=== PATIENT | female | born 1955 | race Caucasian/White ===

== ENCOUNTER 2020-03-26 09:04 | Day surgery (SDC) | payer OTHER, SELFPAY ==
[~2020-03-26] VITALS: Ht 162.6 cm; Wt 85.3 kg
[2020-03-26] MEDS ORDERED: fentaNYL citrate 0.05 MG/ML VIAL ONE (11:19)
[2020-03-26] MEDS ORDERED: LIDOCAINE 2% 100 MG/5 ML UJET TP ONE ×2 (11:19→11:50)
[2020-03-26] MEDS ORDERED: fentaNYL citrate 0.05 MG/ML VIAL IVP ONE (11:45)
== END 2020-03-26 12:00 | disposition home or self-care (01) ==
LOC: MFCC 09:04 → MDS 09:04
PROVIDERS: ATTEND Internal Medicine Gastroenterology
DX: Z12.11 Encounter for screening for malignant neoplasm of colon (principal); Z85.3 Personal history of malignant neoplasm of breast; Z11.59 Encounter for screening for other viral diseases; Z98.890 Other specified postprocedural states; Z88.0 Allergy status to penicillin; Z88.5 Allergy status to narcotic agent; Z91.040 Latex allergy status
CPT/HCPCS: 45378; J3010; U0003

== ENCOUNTER 2023-09-13 17:00 | Observation (INO) | payer OTHER ==
[~2023-09-13] VITALS: Ht 162.6 cm; Wt 81.2 kg
[2023-09-13 17:10] VITALS: PULSE 93; RESP 17; TEMP 98.3; O2SAT 97
[2023-09-13 17:42] VITALS: O2SAT 97
[2023-09-13 17:48] LABS: APPEARANCE,URINE CLEAR (CLEAR); BILIRUBIN,URINE NEGATIVE (NEGATIVE); BLOOD, URINE NEGATIVE (NEGATIVE); COLOR,URINE YELLOW (YELLOW); LEUKOCYTE ESTERASE ,URINE NEGATIVE (NEGATIVE); NITRITE, URINE NEGATIVE (NEGATIVE); PROTEIN,URINE NEGATIVE (NEGATIVE); UGLUCOSE 3+ (NEGATIVE); UROBILINOGEN,URINE 0.2 EU/dL (0.2 - 1)
[2023-09-13 19:08] LABS: BASOPHILS # (AUTO) 0.1 K/uL (0.00-0.22); BASOPHILS % (AUTO) 0.9 % (0.0-2.0); EOSINOPHILS # (AUTO) 0.1 K/uL (0-0.4); EOSINOPHILS % (AUTO) 1.4 % (0.0-4.0); HEMATOCRIT 41.8 % (36-48); HEMOGLOBIN 13.9 g/dL (12.0-16.0); LYMPHOCYTES # (AUTO) 2.3 K/uL (2.5-16.5); LYMPHOCYTES % (AUTO) 28.5 % (20.5-51.1); MEAN CORPUSCULAR HEMOGLOBIN 31 pg (27-31); MEAN CORPUSCULAR HGB CONC 33 g/dL (33-37); MONOCYTES # (AUTO) 0.8 K/uL (0.8-1.0); MONOCYTES % (AUTO) 10.1 % (1.7-9.3); NEUTROPHILS # (AUTO) 4.7 K/uL (1.8-7.7); NEUTROPHILS % (AUTO) 59.1 % (42.2-75.2); PLATELET COUNT (AUTO) 403 K/uL (140-450); RED BLOOD CELL COUNT(AUTO) 4.49 MIL/uL (4.20-5.40); RED CELL DISTRIBUTION WIDTH 14.2 % (11.6-13.7); WHITE BLOOD COUNT (AUTO) 7.9 K/uL (4.8-10.8)
[2023-09-13] MEDS: KETOROLAC 30 MG/ML VIAL IM ONE (19:17)
[2023-09-13] MEDS: ACETAMINOPHEN EXTRA STRENGTH 500 MG TAB PO ONE (19:19)
[2023-09-13 19:22] LABS: FLU A ANTIGEN negative (NEGATIVE); FLU B ANTIGEN negative (NEGATIVE)
[2023-09-13 19:31] LABS: ANION GAP 9.3 (8-16); CALCIUM 9.1 mg/dL (8.5-10.1); CARBON DIOXIDE 34.1 mmol/L (21-32); CREATININE 1.2 mg/dL (0.6-1.3); POTASSIUM 3.4 mmol/L (3.5-5.1)
[2023-09-13 19:34] LABS: INR 0.98 (0.8-1.2); PARTIAL THROMBOPLASTIN TIME 24.4 secs (22-35.6); PROTHROMBIN TIME 10.3 secs (10.8-13.4)
[2023-09-13] MEDS ORDERED: ZOLPIDEM 5 MG TAB PO PRN (21:55)
[2023-09-13] MEDS ORDERED: KCL 20 MEQ IN 100 mL PREMIX 200 ML IV PRN (21:55)
[2023-09-13] MEDS ORDERED: MAG SULF 2000 MG/WATER PREMIX 50 ML IV PRN (21:55)
[2023-09-13] MEDS ORDERED: ACETAMINOPHEN 325 MG TAB PO PRN (21:55)
[2023-09-13] MEDS ORDERED: MAGNESIUM OXIDE 400 MG TAB PO PRN (21:55)
[2023-09-13] MEDS ORDERED: ONDANSETRON 4 MG/2 ML VIAL IVP PRN (21:55)
[2023-09-14] VITALS: BP 141/62; PULSE 70; PULSE 93; RESP 18; TEMP 96.3; O2SAT 99
[2023-09-14] MEDS ORDERED: PRIM250T70 PO (00:26)
[2023-09-14] MEDS ORDERED: ANAS1TAB56 PO (00:26)
[2023-09-14] MEDS ORDERED: DIPH25TA53 PO (00:26)
[2023-09-14] MEDS ORDERED: TRI48 PO (00:26)
[2023-09-14] MEDS ORDERED: DIVA125E1 (00:26)
[2023-09-14] MEDS ORDERED: FAMO-90 PO (00:26)
[2023-09-14] MEDS ORDERED: TRAZ-343 PO (00:26)
[2023-09-14] MEDS ORDERED: ACET-8905 PO (00:26)
[2023-09-14] MEDS ORDERED: ABI10 PO (00:26)
[2023-09-14] MEDS ORDERED: CELE200C PO (00:26)
[2023-09-14] MEDS ORDERED: NITR0.4T2 SL (00:26)
[2023-09-14] MEDS ORDERED: DAPA10TA PO (00:26)
[2023-09-14] MEDS ORDERED: HYDR-4004 PO (00:26)
[2023-09-14] MEDS ORDERED: BACL10TA4 PO (00:26)
[2023-09-14] MEDS ORDERED: LORA-476 PO (00:26)
[2023-09-14] MEDS ORDERED: AMLO5TAB PO (00:26)
[2023-09-14] MEDS ORDERED: UBRO100T PO (00:26)
[2023-09-14] MEDS ORDERED: CARI1.5C PO (00:26)
[2023-09-14] MEDS: POTASSIUM CHLORIDE 10 MEQ TABER PO PRN (00:51)
[2023-09-14 04:00] VITALS: BP 123/57; PULSE 69; PULSE 72; RESP 18; TEMP 97.2; O2SAT 99
[2023-09-14 08:00] VITALS: BP 117/68; PULSE 86; PULSE 96; RESP 20; TEMP 97.7; O2SAT 99
[2023-09-14 08:30] LABS: BASOPHILS % (AUTO) 0.4 % (0.0-2.0); EOSINOPHILS # (AUTO) 0.1 K/uL (0-0.4); EOSINOPHILS % (AUTO) 1.2 % (0.0-4.0); HEMATOCRIT 40.6 % (36-48); HEMOGLOBIN 13.5 g/dL (12.0-16.0); LYMPHOCYTES # (AUTO) 1.6 K/uL (2.5-16.5); LYMPHOCYTES % (AUTO) 22.5 % (20.5-51.1); MEAN CORPUSCULAR HEMOGLOBIN 31 pg (27-31); MEAN CORPUSCULAR HGB CONC 33 g/dL (33-37); MEAN CORPUSCULAR VOLUME 92.9 fL (80-94); MONOCYTES # (AUTO) 0.7 K/uL (0.8-1.0); MONOCYTES % (AUTO) 9.7 % (1.7-9.3); NEUTROPHILS # (AUTO) 4.6 K/uL (1.8-7.7); NEUTROPHILS % (AUTO) 66.2 % (42.2-75.2); PLATELET COUNT (AUTO) 370 K/uL (140-450); RED BLOOD CELL COUNT(AUTO) 4.37 MIL/uL (4.20-5.40); RED CELL DISTRIBUTION WIDTH 14.3 % (11.6-13.7)
[2023-09-14 08:49] LABS: ANION GAP 10.5 (8-16); CALCIUM 9.2 mg/dL (8.5-10.1); CARBON DIOXIDE 31.1 mmol/L (21-32); POTASSIUM 3.6 mmol/L (3.5-5.1)
[2023-09-14 08:52] LABS: MAGNESIUM 1.8 mg/dL (1.8-2.4); PHOSPHORUS 3.6 mg/dL (2.5-4.9)
[2023-09-14] MEDS: ASPIRIN 81 MG TAB.CHEW PO SCH (09:07)
[2023-09-14] MEDS: ATORVASTATIN 20 MG TAB PO SCH (09:07)
[2023-09-14] MEDS: HYDROcodone/APAP 5/325 MG 1 TAB TAB PO PRN (10:03)
[2023-09-14] MEDS ORDERED: HYDROcodone/APAP 5/325 MG 1 TAB TAB PO PRN (11:40)
[2023-09-14] MEDS ORDERED: traZODone 50 MG TAB PO PRN (11:40)
[2023-09-14] MEDS ORDERED: LORazepam 1 MG TAB PO PRN (11:40)
[2023-09-14 12:00] VITALS: BP 147/72; PULSE 105; PULSE 87; RESP 20; TEMP 97.2; O2SAT 98
[2023-09-14 13:50] VITALS: BP 147/72; PULSE 87; RESP 20; TEMP 97.2
[2023-09-14] MEDS ORDERED: hydroCHLOROthiazide 25 MG TAB PO SCH (21:00)
[2023-09-14] MEDS ORDERED: BACLOFEN 10 MG TAB PO SCH (21:00)
[2023-09-15] MEDS ORDERED: DIVALPROEX SPRINKLES 125 MG CAPDR GT SCH (09:00)
[2023-09-15] MEDS ORDERED: ARIPiprazole 10 MG TAB PO SCH (09:00)
[2023-09-15] MEDS ORDERED: amLODIPine 5 MG TAB PO SCH (09:00)
[2023-09-15] MEDS ORDERED: FAMOTIDINE 20 MG TAB PO SCH (09:00)
[2023-09-15] MEDS ORDERED: FENOFIBRATE 48 MG TAB PO SCH (09:00)
== END 2023-09-14 15:31 | disposition home or self-care (01) ==
LOC: MED 17:00 → MTU 21:56 → MMU 23:58
PROVIDERS: ADMIT Student in an Organized Health Care Education/Training Program; ATTEND Student in an Organized Health Care Education/Training Program
DX: I13.10 Hypertensive heart and chronic kidney disease without heart failure, with stage 1 through stage 4 chronic kidney disease, or unspecified chronic kidney disease (principal); Z20.822 Contact with and (suspected) exposure to COVID-19; N18.9 Chronic kidney disease, unspecified; R56.9 Unspecified convulsions; E78.5 Hyperlipidemia, unspecified; I16.0 Hypertensive urgency; R07.89 Other chest pain; I25.2 Old myocardial infarction; G20.A1 Parkinson's disease without dyskinesia, without mention of fluctuations; F02.80 Dementia in other diseases classified elsewhere, unspecified severity, without behavioral disturbance, psychotic disturbance, mood disturbance, and anxiety
CPT/HCPCS: 36415; 70450; 71045; 80048; 81003; 83735; 83880; 84100; 84484; 85025; 85610; 85730; 87081; 87426; 87804; 93005; 96372; 99285; G0378; J1644; J1885